=== PATIENT | male | born 1960 | race Caucasian/White ===

== ENCOUNTER → 2018-08-22 | Outpatient (CLI) | payer OTHER ==
[~2018-08-22] MED LIST: LIDOCAINE-MPF 1%, 5ML ONE
== END | disposition home or self-care (01) ==
LOC: RAD 06:39
PROVIDERS: ATTEND Family Medicine
DX: S43.402A Unspecified sprain of left shoulder joint, initial encounter (principal); M94.212 Chondromalacia, left shoulder; M25.812 Other specified joint disorders, left shoulder; X58.XXXA Exposure to other specified factors, initial encounter; Y93.89 Activity, other specified; Y92.89 Other specified places as the place of occurrence of the external cause; Y99.8 Other external cause status
CPT/HCPCS: 73040; 73222; Q9965

== ENCOUNTER → 2018-10-10 | Outpatient (CLI) | payer OTHER ==
[~2018-10-10] MED LIST changes: +ESOM20CA PO; -LIDOCAINE-MPF 1%, 5ML ONE; +TAMS-11 PO
== END | disposition home or self-care (01) ==
LOC: STAR 09:08
PROVIDERS: ATTEND Orthopaedic Surgery
DX: Z02.9 Encounter for administrative examinations, unspecified (principal)

== ENCOUNTER 2018-10-17 07:26 | Day surgery (SDC) | payer OTHER ==
[2018-10-10 09:34] VITALS: BP 117/80
[~2018-10-17] VITALS: Ht 180.3 cm; Wt 70.4 kg
[~2018-10-17 07:26] MED LIST changes: +BACITRACIN 50,000 UNIT ONE; +EPINEPHRINE 1 MG/ML, 1ML ONE
[2018-10-17] MEDS ORDERED: LACTATED RINGERS 1,000 ML IV SCH (07:40)
[2018-10-17] MEDS ORDERED: FENTANYL PF 250 MCG/5ML ONE (08:27)
[2018-10-17] MEDS ORDERED: MIDAZOLAM 1 MG/ML, 2ML ONE (08:27)
[2018-10-17] MEDS ORDERED: EPINEPHRINE 1 MG/ML, 1ML ONE (09:02)
[2018-10-17] MEDS ORDERED: ONDANSETRON 2MG/ML, 2ML ONE (09:35)
[2018-10-17] MEDS ORDERED: DEXAMETHASONE 4 MG/ML, 1ML ONE (09:35)
[2018-10-17] MEDS ORDERED: ROCURONIUM 10 MG/ML,10ML ONE (09:35)
[2018-10-17] MEDS ORDERED: CEFAZOLIN 1,000 MG ONE (09:35)
[2018-10-17] MEDS ORDERED: PROPOFOL 10 MG/ML, 20ML ONE (09:35)
[2018-10-17] MEDS ORDERED: SUGAMMADEX 200 MG/2 ML IVPush ONE (10:17)
[2018-10-17] MEDS ORDERED: DIAZEPAM 5 MG/ML, 2ML IVPush PRN (11:00)
[2018-10-17] MEDS ORDERED: OXYcodone 5 MG/5 ML ORAL.SOL UDC PO PRN (11:00)
[2018-10-17] MEDS ORDERED: LABETALOL 5MG/ML, 20ML IV PRN (11:00)
[2018-10-17] MEDS ORDERED: HYDROmorphone 2 MG/ML, 1ML IVPush PRN (11:00)
[2018-10-17] MEDS ORDERED: MEPERIDINE/PF 25MG/0.5ML IVPush PRN (11:00)
[2018-10-17] MEDS ORDERED: ACETAMINOPHEN 325 MG TABLET PO PRN (11:00)
[2018-10-17] MEDS ORDERED: FENTANYL PF 100 MCG/2ML IV PRN (11:00)
[2018-10-17] MEDS ORDERED: KETOROLAC 30 MG/1 ML IV PRN (11:00)
[2018-10-17] MEDS ORDERED: ALBUTEROL SULFATE 2.5 MG/3 ML NPPB PRN (11:00)
[2018-10-17] MEDS ORDERED: hydrALAzine 20 MG/ML, 1ML IV PRN (11:00)
[2018-10-17] MEDS ORDERED: PROMETHAZINE 25 MG/ML, 1ML IV PRN (11:00)
[2018-10-17] MEDS ORDERED: OXYcodone 5 MG/5 ML ORAL.SOL UDC ONE (11:28)
[2018-10-17] MEDS ORDERED: ACETAMINOPHEN 650 MG/20.3 ML UDC ONE (11:28)
[2018-10-17] MEDS ORDERED: ACETAMINOPHEN 325 MG TABLET ONE (11:28)
== END 2018-10-17 13:25 | disposition home or self-care (01) ==
LOC: OUT 07:26
PROVIDERS: ATTEND Orthopaedic Surgery
DX: M75.42 Impingement syndrome of left shoulder (principal); M24.112 Other articular cartilage disorders, left shoulder; M94.212 Chondromalacia, left shoulder; Z98.890 Other specified postprocedural states; Z72.89 Other problems related to lifestyle
CPT/HCPCS: 29822; 29826; 64415; J0171; J0690; J1100; J2250; J2405; J2704; J3010; J7120

== ENCOUNTER → 2019-04-15 | Outpatient (CLI) | payer OTHER ==
[~2019-04-15] MED LIST changes: -BACITRACIN 50,000 UNIT ONE; -EPINEPHRINE 1 MG/ML, 1ML ONE
== END | disposition home or self-care (01) ==
LOC: CFH 10:19
PROVIDERS: ATTEND Student in an Organized Health Care Education/Training Program
DX: M48.07 Spinal stenosis, lumbosacral region (principal); M47.816 Spondylosis without myelopathy or radiculopathy, lumbar region; M99.04 Segmental and somatic dysfunction of sacral region; M54.17 Radiculopathy, lumbosacral region; M43.27 Fusion of spine, lumbosacral region; M43.17 Spondylolisthesis, lumbosacral region
CPT/HCPCS: 72148